=== PATIENT | female | born 1995 | race Hispanic/Latino ===

== ENCOUNTER 2020-02-22 22:31 | Inpatient (IN) | payer MEDICARE ==
[~2020-02-22] VITALS: Ht 147.3 cm; Wt 92.9 kg
[2020-02-23] VITALS (30 sets, daily range): BP systolic 85–122; BP diastolic 42–69
[2020-02-23 00:35] LABS: BASOPHILS % (AUTO) 0.2 % (0.0-5.0); EOSINOPHILS % (AUTO) 1.4 % (0.0-8.0); HEMATOCRIT 36.5 % (36-48); LYMPHOCYTES % (AUTO) 19.2 % (21.0-51.0); MEAN CORPUSCULAR HEMOGLOBIN 31.2 pg (27.0-33.0); MEAN CORPUSCULAR HGB CONC 31.8 g/dL (32.0-36.0); MEAN CORPUSCULAR VOLUME 98.1 fL (79-99); MONOCYTES % (AUTO) 5.9 % (3.0-13.0); PLATELET COUNT (AUTO) 222 K/uL (130-400); RED BLOOD CELL COUNT(AUTO) 3.72 MIL/uL (4.00-5.50); RED CELL DISTRIBUTION WIDTH 16.4 % (11.0-15.5); WHITE BLOOD COUNT (AUTO) 5.7 K/uL (4.8-10.8)
[2020-02-23 00:48] LABS: INR 1.21 (0.85-1.15)
[2020-02-23 00:51] LABS: BILIRUBIN,TOTAL 0.4 mg/dL (0.2-1.0); POTASSIUM 4.3 mmol/L (3.5-5.1); TOTAL PROTEIN, SERUM 8.9 g/dL (6.0-8.3)
[2020-02-23 01:01] LABS: CREATININE 8.5 mg/dL (0.5-1.5)
[2020-02-23] MEDS ORDERED: TRAMADOL HCL 50 MG TABLET ONE (03:36)
[2020-02-23] MEDS ORDERED: SODIUM CHLORIDE 0.9% 50 ML IV ONE (08:23)
[2020-02-23] MEDS ORDERED: ONDANSETRON HCL 4 MG/2 ML VIAL ONE (09:39)
[2020-02-23] MEDS ORDERED: HYDROMORPHONE 1 MG/1 ML AMP ONE ×2 (09:40→15:26)
[2020-02-23] MEDS ORDERED: ONDANSETRON ODT 4 MG TAB ONE (09:55)
[2020-02-23] MEDS ORDERED: SODIUM CHLORIDE 0.9% 1000ML 1,000 ML IV ONE (10:04)
[2020-02-23] MEDS ORDERED: DiphenhydrAMINE HCL 50 MG/ML VIAL ONE ×2 (10:04→16:48)
[2020-02-23] MEDS ORDERED: MIDAZOLAM HCL 1 MG/ML 2ML VIAL ONE (11:47)
[2020-02-23] MEDS ORDERED: PROPOFOL 10 MG/ML 20ML VIAL IV ONE (11:47)
[2020-02-23] MEDS ORDERED: ROCURONIUM 10MG/1ML SYR 10 MG/ML ML ONE (11:47)
[2020-02-23] MEDS ORDERED: HEPARIN SODIUM 1000UNIT/ML 10ML VIAL ONE (12:19)
[2020-02-23] MEDS ORDERED: CEFAZOLIN SODIUM 1 GM VIAL IVP ONE (12:20)
[2020-02-23] MEDS ORDERED: PHENYLEPHRINE HCL 10 MG/ML 1ML VIAL IV ONE (12:22)
[2020-02-23] MEDS ORDERED: LIDOCAINE PF 2% 5ML ABBOJECT ONE (12:22)
[2020-02-23] MEDS ORDERED: NEOSTIGMINE 5MG/5ML SYR IV ONE (12:37)
[2020-02-23] MEDS ORDERED: GLYCOPYRROLATE 1 MG/5 ML SYRINGE ONE (12:37)
[2020-02-23] MEDS ORDERED: HEPARIN 25000 UNITS/250 ML D5W 250 ML IV PRN (13:30)
[2020-02-23] MEDS ORDERED: MEPERIDINE-PF 25 MG/ML SYG ONE (14:12)
[2020-02-23 14:25] LABS: INR 1.47 (0.85-1.15); PROTHROMBIN TIME 15.6 SEC (9.6-11.6)
[2020-02-23] MEDS: INSULIN HUMULIN R 100 UNIT/ML 3ML SQ SCH ×2 (16:30→21:00)
[2020-02-23] MEDS: DiphenhydrAMINE HCL 50 MG/ML VIAL IV PRN (16:55)
[2020-02-23] MEDS ORDERED: APIX5TAB PO (17:47)
[2020-02-23] MEDS ORDERED: HALOPERIDOL LACTATE 5 MG/ML VIAL ONE (20:22)
[2020-02-23] MEDS: HYDROMORPHONE 1 MG/1 ML AMP IVP PRN ×2 (21:24→23:59)
[2020-02-24] VITALS (7 sets, daily range): BP systolic 110–125; BP diastolic 58–73
[2020-02-24 06:18] LABS: HEMATOCRIT 30.1 % (36-48); MEAN CORPUSCULAR HEMOGLOBIN 31.2 pg (27.0-33.0); MEAN CORPUSCULAR HGB CONC 31.2 g/dL (32.0-36.0); PLATELET COUNT (AUTO) 180 K/uL (130-400); RED BLOOD CELL COUNT(AUTO) 3.01 MIL/uL (4.00-5.50); WHITE BLOOD COUNT (AUTO) 5.9 K/uL (4.8-10.8)
[2020-02-24] MEDS: INSULIN HUMULIN R 100 UNIT/ML 3ML SQ SCH ×4 (06:37→21:00)
[2020-02-24 06:38] LABS: PHOSPHORUS 9.4 mg/dL (2.5-4.9); POTASSIUM 5.2 mmol/L (3.5-5.1)
[2020-02-24 06:44] LABS: CREATININE 11.3 mg/dL (0.5-1.5)
[2020-02-24 07:20] LABS: EOSINOPHILS % (MANUAL) 7 % (1-6); LYMPHOCYTES % (MANUAL) 34 % (22-44); MAN.DIFF COMMENT-IMPRESSION MANUAL DIFFERENTIAL; MONOCYTES % (MANUAL) 3 % (2-9); SEGMENTED NEUTROPHILS % 56 % (40-70)
[2020-02-24 07:21] LABS: PLATELET MORPHOLOGY COMMENT ADEQUATE
[2020-02-24] MEDS: HYDROMORPHONE 1 MG/1 ML AMP IVP PRN ×4 (08:32→21:36)
[2020-02-24] MEDS ORDERED: APIXABAN 5 MG TABLET PO SCH (13:00)
[2020-02-24] MEDS: PHARMACY COMMUNICATION MISC SCH ×5 (13:22→22:30)
[2020-02-24] MEDS: DiphenhydrAMINE HCL 50 MG/ML VIAL IV PRN ×2 (14:35→22:36)
[2020-02-24] MEDS ORDERED: ALTEPLASE 100 MG VIAL IV SCH (15:31)
[2020-02-24] MEDS ORDERED: ALTEPLASE 2 MG/VIAL IV SCH (15:45)
[2020-02-24] MEDS: APIXABAN 5 MG TABLET PO SCH (21:21)
[2020-02-25] MEDS: PHARMACY COMMUNICATION MISC SCH ×7 (00:30→23:57)
[2020-02-25] MEDS: HYDROMORPHONE 1 MG/1 ML AMP IVP PRN ×5 (02:36→20:42)
[2020-02-25 03:54] VITALS: BP 116/44
[2020-02-25 05:25] LABS: BASOPHILS % (AUTO) 0.4 % (0.0-5.0); EOSINOPHILS % (AUTO) 3.7 % (0.0-8.0); HEMATOCRIT 26.4 % (36-48); LYMPHOCYTES % (AUTO) 25.6 % (21.0-51.0); MEAN CORPUSCULAR HEMOGLOBIN 31.1 pg (27.0-33.0); MEAN CORPUSCULAR HGB CONC 31.4 g/dL (32.0-36.0); MEAN CORPUSCULAR VOLUME 98.9 fL (79-99); MONOCYTES % (AUTO) 6.4 % (3.0-13.0); NEUTROPHILS % (AUTO) 63.5 % (40.0-77.0); PLATELET COUNT (AUTO) 189 K/uL (130-400); RED BLOOD CELL COUNT(AUTO) 2.67 MIL/uL (4.00-5.50); RED CELL DISTRIBUTION WIDTH 15.9 % (11.0-15.5); WHITE BLOOD COUNT (AUTO) 5.6 K/uL (4.8-10.8)
[2020-02-25] MEDS: INSULIN HUMULIN R 100 UNIT/ML 3ML SQ SCH ×4 (05:53→19:57)
[2020-02-25] MEDS: DiphenhydrAMINE HCL 50 MG/ML VIAL IV PRN ×2 (07:45→16:24)
[2020-02-25] MEDS: APIXABAN 5 MG TABLET PO SCH ×2 (07:47→19:55)
[2020-02-25 08:09] VITALS: BP 124/60
[2020-02-25] MEDS ORDERED: LIDOCAINE HCL 1% MDV 50ML VIAL ONE (09:39)
[2020-02-25 11:28] VITALS: BP 123/66
[2020-02-25] MEDS ORDERED: HEPARIN SODIUM 5000UNIT/ML 1ML VIAL SQ SCH (11:30)
[2020-02-25 16:31] VITALS: BP 128/85
[2020-02-25 20:00] VITALS: BP 127/70
[2020-02-25 23:40] VITALS: BP 102/58
[2020-02-26] MEDS: HYDROMORPHONE 1 MG/1 ML AMP IVP PRN ×5 (00:34→20:49)
[2020-02-26] MEDS: DiphenhydrAMINE HCL 50 MG/ML VIAL IV PRN ×3 (00:35→17:16)
[2020-02-26] MEDS: PHARMACY COMMUNICATION MISC SCH ×2 (01:55→03:37)
[2020-02-26 03:47] VITALS: BP 105/52
[2020-02-26] MEDS: INSULIN HUMULIN R 100 UNIT/ML 3ML SQ SCH ×4 (05:19→20:33)
[2020-02-26 05:43] LABS: BASOPHILS % (AUTO) 0.2 % (0.0-5.0); EOSINOPHILS % (AUTO) 2.9 % (0.0-8.0); HEMATOCRIT 27.1 % (36-48); LYMPHOCYTES % (AUTO) 15.7 % (21.0-51.0); MEAN CORPUSCULAR HEMOGLOBIN 31.3 pg (27.0-33.0); MEAN CORPUSCULAR HGB CONC 32.1 g/dL (32.0-36.0); MEAN CORPUSCULAR VOLUME 97.5 fL (79-99); MONOCYTES % (AUTO) 5.9 % (3.0-13.0); NEUTROPHILS % (AUTO) 74.7 % (40.0-77.0); PLATELET COUNT (AUTO) 225 K/uL (130-400); RED BLOOD CELL COUNT(AUTO) 2.78 MIL/uL (4.00-5.50); RED CELL DISTRIBUTION WIDTH 15.8 % (11.0-15.5); WHITE BLOOD COUNT (AUTO) 6.6 K/uL (4.8-10.8)
[2020-02-26 06:05] LABS: POTASSIUM 4.9 mmol/L (3.5-5.1)
[2020-02-26 06:15] LABS: CREATININE 8.4 mg/dL (0.5-1.5)
[2020-02-26 07:15] LABS: HEPATITIS A ANTIBODY IGM Negative (Negative); HEPATITIS B CORE IGM Negative (Negative); HEPATITIS Bs ANTIGEN SCREEN P Negative (Negative)
[2020-02-26] MEDS: APIXABAN 5 MG TABLET PO SCH (08:54)
[2020-02-26 12:00] VITALS: BP 114/79
[2020-02-26] MEDS: SEVELAMER HCL 800 MG TABLET PO SCH ×2 (12:03→16:22)
[2020-02-26 16:00] VITALS: BP 101/65
[2020-02-26 19:44] VITALS: BP 96/40
[2020-02-26] MEDS ORDERED: APIXABAN 5 MG TABLET PO SCH (21:00)
[2020-02-26 22:30] VITALS: BP 106/61
[2020-02-27] MEDS: HYDROMORPHONE 1 MG/1 ML AMP IVP PRN (00:37)
== END 2020-02-27 00:40 | disposition short-term general hospital (02) | DRG 252 ==
LOC: EDH 22:31 → EDHIP 23:22 → OBSVTOIN 23:22 → 4BH 02-23 15:20
PROVIDERS: ADMIT Internal Medicine Nephrology; ATTEND Internal Medicine Nephrology
PROC: 03CY0ZZ Extirpation of Matter from Upper Artery, Open Approach (ICD-10-PCS; principal; 2020-02-23 12:28)
PROC: 5A1D70Z Performance of Urinary Filtration, Intermittent, Less than 6 Hours Per Day (ICD-10-PCS; 2020-02-24)
PROC: 06PYX3Z Removal of Infusion Device from Lower Vein, External Approach (ICD-10-PCS; 2020-02-25)
PROC: 06HM33Z Insertion of Infusion Device into Right Femoral Vein, Percutaneous Approach (ICD-10-PCS; 2020-02-25)
PROC: 5A1D70Z Performance of Urinary Filtration, Intermittent, Less than 6 Hours Per Day (ICD-10-PCS; 2020-02-25)
DX: T82.868A Thrombosis due to vascular prosthetic devices, implants and grafts, initial encounter (principal); N18.6 End stage renal disease; I12.0 Hypertensive chronic kidney disease with stage 5 chronic kidney disease or end stage renal disease; Z68.41 Body mass index [BMI] 40.0-44.9, adult; Z99.2 Dependence on renal dialysis; D64.9 Anemia, unspecified; Z79.01 Long term (current) use of anticoagulants; Z91.041 Radiographic dye allergy status; E83.39 Other disorders of phosphorus metabolism; E66.01 Morbid (severe) obesity due to excess calories
CPT/HCPCS: 36415; 36580; 36581; 74018; 80048; 80053; 80074; 82948; 84100; 85025; 85610; 85730; 86156; 86850; 86870; 86900; 86901; 86922; 88304; 90935; 93931; 93971; C1752; C1757; C1769; G0378; J0690; J1170; J1200; J1630; J1644; J2001; J2175; J2250; J2370; J2405; J2704; J2710; J2997; J3490; J7030